=== PATIENT | female | born 1980 | race Caucasian/White ===

== ENCOUNTER 2022-01-13 23:20 | Emergency (ER) | payer BC, OTHER ==
[~2022-01-13] VITALS: Ht 177.8 cm; Wt 181.8 kg
[2022-01-13] MEDS ORDERED: ROPINIROLE HCL1 MG PO ×2 (23:37)
[2022-01-13] MEDS ORDERED: AMBIEN10 MG PO (23:37)
[2022-01-13] MEDS ORDERED: ADVAIR DISKUS1 DS1 IH (23:38)
[2022-01-13] MEDS ORDERED: LASIX20 M1 PO (23:38)
[2022-01-13] MEDS ORDERED: VOLTAREN 75 DR75 MG PO (23:39)
[2022-01-13] MEDS ORDERED: WEGOVY2.4 MG/0.7 SQ (23:39)
[2022-01-13] MEDS ORDERED: VITAMIN D21250 MCG PO (23:40)
[2022-01-13] MEDS ORDERED: SINGULAIR PO (23:40)
[2022-01-13] MEDS ORDERED: ZYRTEC-D TABLE1 EACH PO (23:41)
[2022-01-13] MEDS ORDERED: SYNTHROID300 MCG PO (23:41)
[2022-01-13] MEDS ORDERED: FLUTICASONE P15.8 ML NS (23:41)
[2022-01-14] MEDS ORDERED: PERCOCET 325 MG1 TA5 PO (00:21)
[2022-01-14 01:02] VITALS: BP 131/70
== END 2022-01-14 01:02 | disposition home or self-care (01) ==
LOC: ED 23:20
DX: M25.462 Effusion, left knee (principal); E66.9 Obesity, unspecified; Z68.43 Body mass index [BMI] 50.0-59.9, adult; X50.1XXA Overexertion from prolonged static or awkward postures, initial encounter
CPT/HCPCS: J1170; J1885

== ENCOUNTER 2022-02-06 04:44 | Emergency (ER) | payer BC, OTHER ==
[~2022-02-06] VITALS: Ht 177.8 cm; Wt 181.8 kg
[~2022-02-06 04:44] MED LIST: ADVAIR DISKUS1 DS1 IH; AMBIEN10 MG PO; FLUTICASONE P15.8 ML NS; LASIX20 M1 PO; PERCOCET 325 MG1 TA5 PO; ROPINIROLE HCL1 MG PO; SINGULAIR PO; SYNTHROID300 MCG PO; VITAMIN D21250 MCG PO; VOLTAREN 75 DR75 MG PO; WEGOVY2.4 MG/0.7 SQ; ZYRTEC-D TABLE1 EACH PO
[2022-02-06 05:19] LABS: BASO # 0.05 K/mm3 (0.02-0.10); EOS # 0.12 K/mm3 (0.04-0.40); EOS % 0.7 % (1.0-5.0); HEMOGLOBIN 13.4 g/dL (12.5-16.0); LYMPH# 3.95 K/mm3 (1.50-4.00); MEAN CELL VOLUME 91 fl (78-100); MEAN CORPUSCULAR HEMOGLOBIN 28 pg (27-31); MEAN CORPUSCULAR HGB CONC 31 g/dL (33-37); MEAN PLATELET VOLUME 9.7 fl (7.4-10.4); MONO # 0.96 K/mm3 (0.20-0.80); PLATELET COUNT 376 K/mm3 (130-400); RED BLOOD COUNT 4.74 M/mm3 (4.10-5.30); RED CELL DISTRIBUTION WIDTH 15.1 % (11.5-14.5); WHITE BLOOD COUNT 18.4 K/mm3 (4.8-10.8)
[2022-02-06 05:28] LABS: ALBUMIN 3.6 g/dL (3.5-5.0); POTASSIUM 3.6 mmol/L (3.5-5.1)
[2022-02-06 05:29] LABS: CALCIUM 9.1 mg/dL (8.3-10.5)
[2022-02-06 05:31] LABS: TOTAL PROTEIN 7.3 g/dL (6.4-8.3)
[2022-02-06 05:32] LABS: TOTAL BILIRUBIN 0.3 mg/dL (0.2-1.2)
[2022-02-06 05:39] LABS: PROTHROMBIN TIME 10.5 SECONDS (9.0-12.0)
[2022-02-06 05:43] LABS: TROPONIN-I 0.246 ng/mL (<0.030)
[2022-02-06 06:02] LABS: URINE APPEARANCE CLOUDY; URINE COLOR YELLOW
[2022-02-06 06:03] LABS: URINE BILIRUBIN NEGATIVE (NEGATIVE); URINE BLOOD TRACE (NEGATIVE); URINE GLUCOSE NEGATIVE (NEGATIVE); URINE KETONE NEGATIVE (NEGATIVE); URINE LEUKOCYTE ESTERASE 2+ (NEGATIVE); URINE NITRATE NEGATIVE (NEGATIVE); URINE PROTEIN(semi-quant) 1+ (NEGATIVE); URINE UROBILINOGEN NORMAL (NORMAL)
[2022-02-06] MEDS ORDERED: NORCO 325 MG-51 TA1 PO ×2 (09:49)
[2022-02-06 11:40] VITALS: BP 106/83
== END 2022-02-06 10:11 | disposition short-term general hospital (02) ==
LOC: ED 04:44
PROVIDERS: Physician Assistant
DX: I26.99 Other pulmonary embolism without acute cor pulmonale (principal); R09.02 Hypoxemia; R77.8 Other specified abnormalities of plasma proteins
CPT/HCPCS: J1644; J2930; Q9967

== ENCOUNTER 2022-02-14 15:25 | Outpatient (RCR) | payer BC, OTHER ==
[~2022-02-14 15:25] MED LIST changes: +NORCO 325 MG-51 TA1 PO
== END 2022-03-04 | disposition home or self-care (01) ==
LOC: PT
DX: M25.562 Pain in left knee (principal)

== ENCOUNTER 2022-03-18 15:58 | Outpatient (RCR) | payer BC, OTHER ==
[2022-03-22] MEDS ORDERED: ELIQUIS5 MG PO (23:01)
[2022-03-23] MEDS ORDERED: MACROBID 100 M100 MG PO ×2 (03:22)
[2022-03-23] MEDS ORDERED: CEFDINIR300 MG PO (03:29)
== END 2022-04-03 | disposition home or self-care (01) ==
LOC: PT
DX: M25.562 Pain in left knee (principal)

== ENCOUNTER 2022-03-22 22:46 | Emergency (ER) | payer BC, OTHER ==
[~2022-03-22] VITALS: Ht 177.8 cm; Wt 181.8 kg
[2022-03-22] MEDS ORDERED: ELIQUIS5 MG PO (23:01)
[2022-03-22 23:28] LABS: BASO # 0.05 K/mm3 (0.02-0.10); EOS % 2.4 % (1.0-5.0); HEMATOCRIT 44.8 % (37.0-47.0); HEMOGLOBIN 14.4 g/dL (12.5-16.0); MEAN CELL VOLUME 90 fl (78-100); MEAN CORPUSCULAR HEMOGLOBIN 29 pg (27-31); MEAN CORPUSCULAR HGB CONC 32 g/dL (33-37); MEAN PLATELET VOLUME 9.6 fl (7.4-10.4); MONO # 0.75 K/mm3 (0.20-0.80); PLATELET COUNT 404 K/mm3 (130-400); RED BLOOD COUNT 4.98 M/mm3 (4.10-5.30); RED CELL DISTRIBUTION WIDTH 15.4 % (11.5-14.5)
[2022-03-22 23:34] LABS: ALBUMIN 3.7 g/dL (3.5-5.0); POTASSIUM 4.8 mmol/L (3.5-5.1)
[2022-03-22 23:35] LABS: CALCIUM 10.2 mg/dL (8.3-10.5)
[2022-03-22 23:36] LABS: TOTAL PROTEIN 7.5 g/dL (6.4-8.3)
[2022-03-22 23:38] LABS: TOTAL BILIRUBIN 0.8 mg/dL (0.2-1.2)
[2022-03-22 23:53] LABS: D-DIMER 0.33 mg/L FEU (0.15-0.50)
[2022-03-23 00:48] LABS: URINE COLOR YELLOW
[2022-03-23 01:02] LABS: URINE APPEARANCE CLOUDY; URINE BILIRUBIN NEGATIVE (NEGATIVE); URINE BLOOD TRACE (NEGATIVE); URINE GLUCOSE NEGATIVE (NEGATIVE); URINE KETONE NEGATIVE (NEGATIVE); URINE LEUKOCYTE ESTERASE 2+ (NEGATIVE); URINE NITRATE NEGATIVE (NEGATIVE); URINE PROTEIN(semi-quant) TRACE (NEGATIVE); URINE UROBILINOGEN NORMAL (NORMAL); URINE WBC 16-30 /hpf (0-3)
[2022-03-23] MEDS ORDERED: MACROBID 100 M100 MG PO ×2 (03:22)
[2022-03-23] MEDS ORDERED: CEFDINIR300 MG PO (03:29)
[2022-03-23 03:33] VITALS: BP 126/86
== END 2022-03-23 03:33 | disposition home or self-care (01) ==
LOC: ED 22:46
PROVIDERS: Family Medicine
DX: R06.02 Shortness of breath (principal); E66.01 Morbid (severe) obesity due to excess calories; Z86.16 Personal history of COVID-19
CPT/HCPCS: J0696; J7030

== ENCOUNTER 2022-04-09 16:00 | Outpatient (RCR) | payer BC, OTHER ==
[~2022-04-09 16:00] MED LIST changes: +CEFDINIR300 MG PO; +ELIQUIS5 MG PO; +MACROBID 100 M100 MG PO
== END 2022-05-04 | disposition home or self-care (01) ==
LOC: PT
DX: S83.207D Unspecified tear of unspecified meniscus, current injury, left knee, subsequent encounter (principal); X58.XXXD Exposure to other specified factors, subsequent encounter

== ENCOUNTER 2022-05-07 07:56 | Outpatient (RCR) | payer BC, OTHER | END 2022-05-27 15:33 | disposition home or self-care (01) | LOC: PT 07:56 | DX: M25.562 Pain in left knee (principal) ==

== ENCOUNTER → 2022-05-12 | Outpatient (CLI) | payer BC, OTHER | LOC: RAD 13:56 | DX: J98.11 Atelectasis (principal) | CPT/HCPCS: Q9967 ==

== ENCOUNTER 2023-10-06 15:17 | Outpatient (RCR) | payer BC ==
[~2023-10-06] VITALS: Ht 177.8 cm; Wt 181.8 kg
[~2023-10-06 15:17] MED LIST changes: +HYOSCYAMINE0.125 M7 PO; +METOPROLOL SUCC50 M1 PO; +NS 1,000 ML IV SCH; +PERCOCET 325 MG1 TA2 PO; +ROPINIROLE HYDRO5 MG PO; +ZOFRAN ODT4 MG PO
[2023-10-06 15:37] VITALS: BP 121/84
[2023-10-06 17:13] LABS: BASO # 0.02 K/mm3 (0.02-0.10); EOS # 0.26 K/mm3 (0.04-0.40); EOS % 3.7 % (1.0-5.0); HEMATOCRIT 39.6 % (37.0-47.0); HEMOGLOBIN 12.1 g/dL (12.5-16.0); LYMPH# 1.13 K/mm3 (1.50-4.00); MEAN CELL VOLUME 86 fl (78-100); MEAN CORPUSCULAR HEMOGLOBIN 26 pg (27-31); MEAN CORPUSCULAR HGB CONC 31 g/dL (33-37); MEAN PLATELET VOLUME 10.8 fl (7.4-10.4); MONO # 0.77 K/mm3 (0.20-0.80); PLATELET COUNT 377 K/mm3 (130-400); RED BLOOD COUNT 4.59 M/mm3 (4.10-5.30); RED CELL DISTRIBUTION WIDTH 16.7 % (11.5-14.5); WHITE BLOOD COUNT 6.9 K/mm3 (4.8-10.8)
[2023-10-06 17:22] LABS: CALCIUM 8.4 mg/dL (8.3-10.5)
== END 2023-11-04 | disposition home or self-care (01) ==
LOC: AMSURD
PROVIDERS: Family Medicine
DX: E86.0 Dehydration (principal); Z98.84 Bariatric surgery status
CPT/HCPCS: J7030

== ENCOUNTER 2024-02-18 21:14 | Emergency (ER) | payer BC, OTHER ==
[~2024-02-18 21:14] MED LIST changes: +Morphine 10 MG/ML VIAL IM ONE; -NS 1,000 ML IV SCH; +methylPREDNISolone Sod Succ 125 MG/2 ML VIAL IV ONE; +oxyCODONE 5 MG TAB PO ONE
[2024-03-25 07:43] LABS: ALBUMIN 3.3 g/dL (3.5-5.0); TOTAL BILIRUBIN 0.5 mg/dL (0.2-1.2); TOTAL PROTEIN 6.6 g/dL (6.4-8.3)
[2024-03-25 07:49] LABS: BASO # 0.03 K/mm3 (0.02-0.10); EOS # 0.35 K/mm3 (0.04-0.40); EOS % 2.6 % (1.0-5.0); HEMATOCRIT 40.3 % (37.0-47.0); HEMOGLOBIN 12.3 g/dL (12.5-16.0); LYMPH# 2.53 K/mm3 (1.50-4.00); MEAN CELL VOLUME 96 fl (78-100); MEAN CORPUSCULAR HEMOGLOBIN 29 pg (27-31); MEAN CORPUSCULAR HGB CONC 31 g/dL (33-37); MEAN PLATELET VOLUME 9.6 fl (7.4-10.4); MONO # 0.91 K/mm3 (0.20-0.80); NEU # 9.81 K/mm3 (1.40-6.50); PLATELET COUNT 370 K/mm3 (130-400); RED BLOOD COUNT 4.21 M/mm3 (4.10-5.30); RED CELL DISTRIBUTION WIDTH 17.2 % (11.5-14.5); WHITE BLOOD COUNT 13.7 K/mm3 (4.8-10.8)
== END 2024-02-19 00:04 | disposition home or self-care (01) ==
LOC: ED 21:14
PROVIDERS: Family Medicine
DX: M10.9 Gout, unspecified (principal)
CPT/HCPCS: J2270; J2919

== ENCOUNTER → 2024-10-25 | Outpatient (CLI) | payer BC, OTHER ==
[~2024-10-25] VITALS: Ht 172.7 cm; Wt 159.0 kg
[~2024-10-25] MED LIST changes: +CYCLOBENZAPRINE PO; +CYCLOSPORINE PO; +DIFLUCAN100 M1 PO; +ELIQUIS2.5 MG PO; +FEBUXOSTAT40 MG PO; +FOSFOMYCIN TROME3 GM PO; +GEMTESA75 MG PO; +Lidocaine 2% Jelly 5 GM TUBE TOP ONE; +MIDODRINE HCL10 MG PO; -Morphine 10 MG/ML VIAL IM ONE; +ONDANSETRON HYDR8 MG PO; +PRAMIPEXOLE DI0.5 MG PO; +VITAMIN D3125 MC3 PO; +ZEPBOUND5 MG/0.5 M SQ; -methylPREDNISolone Sod Succ 125 MG/2 ML VIAL IV ONE; -oxyCODONE 5 MG TAB PO ONE
[2024-10-25 15:37] VITALS: BP 157/104
--- NOTE | 2024-10-25 16:03 | NUR ---
PATIENT HERE FOR WOUND CARE TO LEFT LOWER LEG. CONSENT SIGNED. PATIENT REPORTS WOUND STARTED 09/26 FROM A LAUNDRY BASKET HITTING LEG. HYDROCOLLOID DRESSING PLACED OVER WOUND BED, THIS RN REMOVED DRESSING NOTING UNSTABLE ESCHAR. TOPICAL LIDOCAINE PLACED ON WOUND BED. Jennifer CONLEY APRN DEBRIDED WOUND WITH 3MM CURETTE, CURVED IRIS AND FORCEPS. WOUND BED CLEANSED WITH HIBICLENSE AND JET LAVAGE. MEASUREMENTS AND PHOTOGRAPHS TAKEN. NORMLGEL AND AQUACEL EXTRA PLACED IN WOUND BED. WOUND COVERED WITH OPTILOCK, SOFT ROLL, AND TAPE. SUPPLIED PROVIDED TO PATIENT AND FOR AT HOME WOUND DRESSING CHANGE NEEDED. PATIENT RESCHEDULED FOR THURSDAY FOR DRESSING CHANGE.
== END ==
LOC: WOUND 15:03
DX: I89.0 Lymphedema, not elsewhere classified (principal); S81.802A Unspecified open wound, left lower leg, initial encounter
CPT/HCPCS: 18886; 18897; 19899; A6248

== ENCOUNTER → 2024-11-04 | Outpatient (CLI) | payer BC, OTHER ==
[~2024-11-04] VITALS: Ht 172.7 cm; Wt 159.0 kg
[~2024-11-04] MED LIST changes: -Lidocaine 2% Jelly 5 GM TUBE TOP ONE
[2024-11-04 16:07] VITALS: BP 146/96
--- NOTE | 2024-11-04 18:07 | NUR ---
PT HERE FOR OP WOUND CARE TO LEFT ANTERIOR LOWER LEG. SHE DID NOT MAKE IT TO HER APPT LAST THURSDAY, SO IT HAS BEEN 10 DAYS SINCE WE HAVE SEEN HER WOUND. SHE STATES SHE HAS BEEN CHANGING THE BANDAGE EVERY DAY AND THAT THE BLACK ESCHAR CAME OFF. WOUND TODAY LOOKS MUCH IMPROVED WITH APPROX 75% GRANULATION AND 25% SLOUGH. MEASURED 2.7CM W AND 1.7CM L. PICTURES TAKEN. INSTRUCTED PT TO DISCONTINUE NORMLGEL. CLEANED WOUND WITH HIBICLEN AND DEBRISOFT LOLLY. JET LAVAGED WITH STERILE WATER AND PATTED DRY WITH 4X4. APPLIED IODOSORB GEL TO WOUND BED AND COVERED WITH AQUACEL EXTRA AND OPTILOCK. WRAPPED WITH SOFT ROLL . HOWEVER PT STATES THE SOFT ROLL DID NOT STAY ON AND THE OPTILOCK FELL OUT BEFORE SHE GOT TO THE CAR LAST WEEK. THEREFORE I TAPED THE OPTILOCK IN PLACE UNTIL PT CAN GET HOME AND SHE WILL REPLACE THE OPTILOCK WITH A LARGE BANDAGE THAT WORKS WELL ON HER SKIN. SHE WILL LEAVE THE AQUACEL AND IODOSORB IN PLACE AND JUST CHANGE THE OUTER DRESSING. SUPPLIES SENT WITH PATIENT. WILL RETURN ON THURSDAY.
== END ==
LOC: WOUND 15:57
DX: S81.802A Unspecified open wound, left lower leg, initial encounter (principal); I89.0 Lymphedema, not elsewhere classified
CPT/HCPCS: 18897; 19064; 19899; A6261

== ENCOUNTER → 2024-11-08 | Outpatient (CLI) | payer BC, OTHER ==
[~2024-11-08] VITALS: Ht 172.7 cm; Wt 159.0 kg
[~2024-11-08] MED LIST changes: +Lidocaine 2% Jelly 5 GM TUBE TOP ONE
[2024-11-08 15:35] VITALS: BP 163/107
--- NOTE | 2024-11-08 15:36 | NUR ---
PT HERE FOR WOUND CARE TO LEFT LOWER LEG WOUND. STATES HAD A LITTLE PURULENT DRAINAGE. CHANGING DRESSING DAILY. Jennifer CONLEY MANAGER OF PROGRAM IN TO DEBRIDE WOUND. WOUND BED BEEFY RED. CLEANED WITH VASHE WASH. STARTED COLLAGEN TODAY. COVERED WITH PT'S OWN BANDAID THAT SHE STATES DOES NOT IRRITATE HER SKIN. WILL CHANGE DRESSINGS EVERY 2 DAYS AT HOME AND RETURN TO WOUND CLINIC IN 1 WEEK. SUPPLIES SENT HOME WITH PT.
== END ==
LOC: WOUND 15:05
DX: I89.0 Lymphedema, not elsewhere classified (principal); S81.802A Unspecified open wound, left lower leg, initial encounter

== ENCOUNTER 2024-11-13 17:10 | Emergency (ER) | payer BC, OTHER ==
[~2024-11-13 17:10] MED LIST changes: -Lidocaine 2% Jelly 5 GM TUBE TOP ONE
[2024-11-13] MEDS ORDERED: Ketorolac 30 MG/ML VIAL IM ONE (17:45)
[2024-11-13] MEDS ORDERED: diphenhydrAMINE 50 MG/ML 1 ML VIAL IM ONE (17:45)
[2024-11-13 18:13] VITALS: BP 140/80
== END 2024-11-13 18:15 | disposition home or self-care (01) ==
LOC: ED 17:10
DX: G43.119 Migraine with aura, intractable, without status migrainosus (principal); Z79.01 Long term (current) use of anticoagulants
CPT/HCPCS: J0780; J1200; J1885

== ENCOUNTER → 2024-11-15 | Outpatient (CLI) | payer BC, OTHER ==
[~2024-11-15] VITALS: Ht 172.7 cm; Wt 159.0 kg
[~2024-11-15] MED LIST changes: +Lidocaine 2% Jelly 5 GM TUBE TOP ONE
[2024-11-15 15:42] VITALS: BP 150/104
== END ==
LOC: WOUND 15:25
DX: I89.0 Lymphedema, not elsewhere classified (principal); S81.802A Unspecified open wound, left lower leg, initial encounter
CPT/HCPCS: 18895; 19899; A6021

== ENCOUNTER → 2025-01-03 | Outpatient (CLI) | payer BC, OTHER ==
[~2025-01-03] VITALS: Ht 175.3 cm; Wt 150.3 kg
[~2025-01-03] MED LIST changes: -Lidocaine 2% Jelly 5 GM TUBE TOP ONE; +NS 1,000 ML IV SCH; +PANTOPRAZOLE SO40 MG PO; +TACROLIMUS1 MG PO; +Thiamine 100 MG/ML 2 ML VIAL IV ONE; +XOLAIR300 MG/2 M SQ
[2025-01-03 11:23] VITALS: BP 116/86
[2025-01-03 13:34] VITALS: BP 135/77
== END ==
LOC: AMSURD 11:05
DX: E86.0 Dehydration (principal); Z98.84 Bariatric surgery status
CPT/HCPCS: J0780; J3411; J7030

== ENCOUNTER → 2025-01-06 | Outpatient (CLI) | payer BC, OTHER ==
[~2025-01-06] VITALS: Ht 175.3 cm; Wt 149.0 kg
[2025-01-06 18:15] VITALS: BP 134/84
== END ==
LOC: AMSURD 17:44
DX: E86.0 Dehydration (principal); Z98.890 Other specified postprocedural states
CPT/HCPCS: J0780; J3411; J7030

== ENCOUNTER → 2025-01-12 | Outpatient (CLI) | payer BC, OTHER ==
[~2025-01-12] MED LIST changes: +Iohexol 300 - 100 ML VIAL IV ONE; -NS 1,000 ML IV SCH; +NS 100 ML IV ONE; -Thiamine 100 MG/ML 2 ML VIAL IV ONE
== END ==
LOC: RAD 08:51
DX: K76.0 Fatty (change of) liver, not elsewhere classified (principal); M47.816 Spondylosis without myelopathy or radiculopathy, lumbar region; D72.829 Elevated white blood cell count, unspecified; Z90.3 Acquired absence of stomach [part of]; Z90.49 Acquired absence of other specified parts of digestive tract
CPT/HCPCS: Q9967